=== PATIENT | female | born 1935 | race African-American/Black ===

== ENCOUNTER 2017-08-05 14:26 | Outpatient (CLI) | payer MEDICARE, MEDICAID ==
[2017-08-05 15:30] LABS: Bilirubin Negative (Negative); Blood, Urine Trace (Negative); Clarity Slightly Cloudy (Clear); Glucose, Urine (Dipstick) Negative (Negative); Leukocyte Large (Negative); Nitrite Negative (Negative); Protein, Urine (Dipstick) Negative (Neg-Trace); Urobilinogen 0.2 mg/dL (0.2-1.0); pH, Urine 5.5 (5.0-9.0)
[2017-08-05 15:31] LABS: Specific Gravity, Urine 1.008 (1.002-1.036)
[2017-08-05 15:34] LABS: Bacteria/HPF 1+ HPF (None Seen); RBC/HPF 0-3 HPF (0-3); Squamous Epithelial 0-3 HPF (0-3)
== END 2017-08-05 14:27 | disposition home or self-care (01) ==
LOC: NAVSJIPCSP 14:26
PROVIDERS: ATTEND Internal Medicine
DX: R30.0 Dysuria (principal)
CPT/HCPCS: 81003; 81015; 87077; 87086; 87186

== ENCOUNTER 2017-12-07 17:02 | Outpatient (CLI) | payer MEDICARE, MEDICAID ==
[2017-12-07 17:25] LABS: #Basophils 0.1 thou/uL (0.0-0.2); #Eosinphils 0.6 thou/uL (0.0-0.7); #Monocytes 0.7 thou/uL (0.11-0.59); #Neutrophils 4.6 thou/uL (1.40-6.50); %Basophils 1.2 % (0.0-1.0); %Eosinophils 6.9 % (0.0-10.0); %Lymphocytes 33.6 % (21.0-51.0); %Monocytes 7.4 % (0.0-10.0); %Neutrophils 50.9 % (42.0-75.0); Hemoglobin 14.4 g/dL (12.0-16.0); Mean Corpuscular HGB CONC 30.7 g/dL (32.0-36.0); Mean Corpuscular Hemoglobin 28.8 pg (27.0-31.0); Mean Corpuscular Volume 93.8 fl (81.0-99.0); Mean Platelet Volume 8.4 fL (7.4-10.4); Platelet Count 238 thou/uL (130-400); RBC Distribution Width 13.1 % (11.5-14.5); Red Blood Cell (RBC) Count 5.01 mill/uL (4.20-5.40)
--- NOTE | 2017-12-07 17:59 | RAD ---
CHEST TWO VIEWS: 12/07/17 HISTORY: Recurrent aspiration. COMPARISON: 02/23/17. FINDINGS: Atherosclerosis of the aorta. Normal cardiac silhouette. Lungs and pleural spaces are clear. No conso lidation or mass. Hyperinflation is noted. No pneumothorax. Cervical fusion hardware, right humeral p rosthesis and distal thoracic spine fusion hardware is noted. Stable calcified granuloma in the left lung base. IMPRESSION: 1. No acute cardiopulmonary process. 2. Atherosclerosis. POS: PPP
== END 2017-12-07 17:03 | disposition home or self-care (01) ==
LOC: NAV RAD 17:02
PROVIDERS: ATTEND Internal Medicine
DX: J69.0 Pneumonitis due to inhalation of food and vomit (principal); I70.90 Unspecified atherosclerosis
CPT/HCPCS: 71046; 85025

== ENCOUNTER 2018-06-17 11:28 | Emergency (ER) | payer MEDICARE, OTHER ==
[2018-06-17] MEDS ORDERED: hydrALAZINE 20 MG/ML VIAL ONE (12:17)
[2018-06-17 12:54] LABS: Anion Gap 13 mmol/L (10-20); BUN (Urea Nitrogen) 12 mg/dL (9.8-20.1); Calc. Creatinine Clearance 0 mL/min (70-130); Calcium 9.8 mg/dL (7.8-10.44); Carbon Dioxide 25 mmol/L (23-31); Chloride 104 mmol/L (98-107); Estimated GFR-MDRD 67; Glucose 103 mg/dL (83-110); Potassium 3.7 mmol/L (3.5-5.1); Sodium 138 mmol/L (136-145)
[2018-06-17] MEDS ORDERED: Albuterol Sulfate 2.5 mg/3 ml Neb ONE (13:28)
[2018-06-17] MEDS ORDERED: traMADol HCl 50 MG TAB ONE (13:28)
[2018-06-17] MEDS ORDERED: predniSONE 20 MG TAB ONE (14:06)
--- NOTE | 2018-06-17 14:15 | RAD ---
LEFT RIBS WITH PA CHEST: Date: 06/17/18 HISTORY: Fall. COMPARISON: None. FINDINGS: Heart size is enlarged. There is a left basilar calcified granuloma. No acute displaced left-sided rib fracture. IMPRESSION: Chronic findings. No acute abnormality. POS: CLAYH
--- NOTE | 2018-06-17 14:19 | RAD ---
LEFT SHOULDER 3 VIEWS: Date: 06/17/18 HISTORY: Fall. COMPARISON: None. FINDINGS: No acute displaced fracture or malalignment. Visualized ribs are unremarkable. Moderate degenerative changes of the left humeral head/neck junction. There is calcified tendinosis of the rotator cuff and much less likely an avulsion fracture. Large vu bacromial osteophyte. IMPRESSION: Likely calcific tendinosis left rotator cuff, less likely an avulsion fracture from the footprint. MR I may be beneficial if clinically warranted. POS: ELY
--- NOTE | 2018-06-17 14:20 | RAD ---
LEFT HIP 2 VIEWS: Date: 06/17/18 HISTORY: Fall. COMPARISON: None. FINDINGS: No definite acute fracture is appreciated. There are advanced enthesopathic changes throughout the gl uteus medius and minimus tendon insertions. Multiple calcifications of the left gluteus musculature. Hypertrophic degenerative changes of the pubic symphysis. SI fusion hardware, as well as lumbosacral spine hardware is appreciated. IMPRESSION: No acute fracture of the left hip. POS: CLAY
--- NOTE | 2018-06-17 14:37 | CT ---
CT HEAD NONCONTRAST DATE: 06/17/18 HISTORY: Fall. Head injury. FINDINGS: There is no evidence of acute intracranial hemorrhage or infarct. 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 No mass effect or shift of midline structures. Prominent cavum septum pellucidum. Sm all polyp in the posterior aspect of left maxillary sinus. IMPRESSION: No acute intracranial abnormalities are demonstrated. POS: CLAY
--- NOTE | 2018-06-17 14:41 | CT ---
CT CERVICAL SPINE WITHOUT CONTRAST: Date: 06/17/18 HISTORY: Fall. Trauma. Pain. COMPARISON: None. FINDINGS: The odontoid process is intact. The occipital condyles are intact. There are erosive degenerative chapito nges of the odonto-atlanto interval. There is ACDF hardware at C4-5, as well as C7-T1. There is osseous fusion of the C6 and C7 vertebral bodies. There is posterior hypertrophic osteophyte formation at C3-C4, narrowing the spinal canal. There are erosive changes at the C7-T1 diskectomy spacer, which may reflect micromotion at this level . There is no acute fracture or malalignment of the cervical spine. The temporomandibular joint alignme nt is normal bilaterally. Paraspinal soft tissues are unremarkable. There is asymmetric enlargement o f the left lobe of the thyroid gland. IMPRESSION: 1. No acute fracture or malalignment of the cervical spine. 2. Asymmetric enlargement of left thyroid gland, for which nonemergent ultrasound could be obtained if clinically warranted. POS: ELY
== END 2018-06-17 14:15 | disposition home or self-care (01) ==
LOC: NAV ERS 11:28
DX: S70.02XA Contusion of left hip, initial encounter (principal); J44.9 Chronic obstructive pulmonary disease, unspecified; M54.2 Cervicalgia; I48.91 Unspecified atrial fibrillation; I11.0 Hypertensive heart disease with heart failure; I50.9 Heart failure, unspecified; K21.9 Gastro-esophageal reflux disease without esophagitis; E78.5 Hyperlipidemia, unspecified; F41.9 Anxiety disorder, unspecified; F32.9 Major depressive disorder, single episode, unspecified; Z86.73 Personal history of transient ischemic attack (TIA), and cerebral infarction without residual deficits; Z79.891 Long term (current) use of opiate analgesic; Z79.899 Other long term (current) drug therapy; W01.190A Fall on same level from slipping, tripping and stumbling with subsequent striking against furniture, initial encounter
CPT/HCPCS: 70450; 72125; 80048; J0360; J7506; J7611; J7620

== ENCOUNTER 2018-11-21 19:36 | Outpatient (CLI) | payer MEDICARE, OTHER ==
--- NOTE | 2018-11-21 20:03 | RAD ---
EXAM: Chest 2 views: HISTORY: Cough and congestion for 2 weeks COMPARISON: 12/07/2017 FINDINGS: Postoperative changes involving the cervical spine, lower thoracic and lumbar spine, and right should er. Heart size is within normal limits. Old granulomatous disease. Minimal thickening in the region of the right minor fissure possibly a small amount of fluid. The lungs demonstrate no significant acute process. Atherosclerotic changes of the aorta. No confluent pneumonia, overt edema, pleural effusion, pneumothorax, or other significant acute proce ss. IMPRESSION: Overall probably stable chronic lung changes given less inspiration on today's study. Atherosclerosis of the aorta. No significant new process.
== END 2018-11-21 19:37 | disposition home or self-care (01) ==
LOC: NAV RAD 19:36
PROVIDERS: ATTEND Internal Medicine
DX: R05 Cough (principal); I70.0 Atherosclerosis of aorta
CPT/HCPCS: 71046

== ENCOUNTER 2019-02-21 17:15 | Outpatient (CLI) | payer MEDICARE, OTHER ==
--- NOTE | 2019-02-21 17:48 | ULT ---
EXAM: Carotid Doppler PROVIDED CLINICAL HISTORY: CVA COMPARISON: None FINDINGS: Grayscale and color Doppler sonography with spectral analysis was performed of the extracranial carot id system bilaterally. There is no evidence for a hemodynamically significant internal carotid artery stenosis by peak systolic velocity or ratio criteria. Antegrade flow is seen in the vertebral arteries. IMPRESSION: No sonographic evidence for a hemodynamically significant internal carotid artery stenosis.
--- NOTE | 2019-02-21 18:06 | CT ---
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 Postoperative c hanges of ACDF are again noted at C4-5 and C6-7, without evidence for hardware loosening or migration. Fusion across the C5-6 interspace may be congenital or postoperative and is also stable. P rominent disc space narrowing and endplate degenerative change again noted at C3-4 and C7-T1. Multilevel facet arthritis changes most conspicuous at C3-4, C6-7 and C7-T1. Evaluation for central c anal stenosis is limited by CT though central canal narrowing at C3-4 appears grossly stable and is likely at least moderate in degree. There is severe right foraminal narrowing and mild to moderate le ft foraminal narrowing at C3-4. There is severe foraminal narrowing on the left at C6-7 and severe bilateral foraminal narrowing at C7-T1. IMPRESSION: Postoperative and degenerative changes involving the cervical spine as described above, appearing sim ilar to prior study.
== END 2019-02-21 17:16 | disposition home or self-care (01) ==
LOC: NAV ULT 17:15
PROVIDERS: ATTEND Internal Medicine
DX: M50.20 Other cervical disc displacement, unspecified cervical region (principal); I63.512 Cerebral infarction due to unspecified occlusion or stenosis of left middle cerebral artery; M47.812 Spondylosis without myelopathy or radiculopathy, cervical region; Z98.890 Other specified postprocedural states
CPT/HCPCS: 72125; 93880

== ENCOUNTER 2020-02-02 15:54 | Emergency (ER) | payer MEDICARE, OTHER ==
[2020-02-02] MEDS ORDERED: Fluorescein Opthalmic Strip ONE (16:26)
[2020-02-02] MEDS ORDERED: Naproxen 500 MG TAB ONE (17:05)
== END 2020-02-02 17:20 | disposition home or self-care (01) ==
LOC: NAV ERS 15:54
DX: T15.91XA Foreign body on external eye, part unspecified, right eye, initial encounter (principal); I11.0 Hypertensive heart disease with heart failure; I50.9 Heart failure, unspecified; I48.91 Unspecified atrial fibrillation; I25.2 Old myocardial infarction; I25.10 Atherosclerotic heart disease of native coronary artery without angina pectoris; K21.9 Gastro-esophageal reflux disease without esophagitis; E78.5 Hyperlipidemia, unspecified; E78.00 Pure hypercholesterolemia, unspecified; Z86.73 Personal history of transient ischemic attack (TIA), and cerebral infarction without residual deficits; F03.90 Unspecified dementia, unspecified severity, without behavioral disturbance, psychotic disturbance, mood disturbance, and anxiety; J44.9 Chronic obstructive pulmonary disease, unspecified; F41.9 Anxiety disorder, unspecified; F32.9 Major depressive disorder, single episode, unspecified; Z79.51 Long term (current) use of inhaled steroids; Z79.899 Other long term (current) drug therapy
CPT/HCPCS: 99283

== ENCOUNTER 2020-03-14 14:52 | Outpatient (CLI) | payer MEDICARE, OTHER ==
--- NOTE | 2020-03-14 15:31 | RAD ---
EXAM: Chest 2 views: HISTORY: Wheezing COMPARISON: 11/21/2018 FINDINGS: There is an enlarged but stable cardiomediastinal silhouette. Atherosclerotic calcifications are see n in the aorta. There is no evidence of consolidation, mass, or pleural effusion. Degenerative changes are seen in the spine. Post surgical changes are seen in the spine and right shoulder. IMPRESSION: No evidence of acute cardiopulmonary disease
--- NOTE | 2020-03-14 15:54 | RAD ---
LEFT KNEE: 03/14/20 Total of five views. INDICATIONS: Fall with knee pain. Moderate degenerative changes. Loss of medial joint space. Prominent marginal osteophytes medially. C hondrocalcinosis. Prominent degenerative changes at the patellofemoral joint. No effusion. No acute f racture identified. IMPRESSION: Moderate degenerative changes at the left knee primarily involving the medial joint space and the pat ellofemoral space. POS: AGW
--- NOTE | 2020-03-14 16:10 | RAD ---
LUMBAR SPINE SERIES THREE VIEWS: 03/14/20 HISTORY: Fall with back pain. Extensive postop changes are noted. Bilateral pedicle screw placement at L5-S1. I-bar placement acros s the left SI joint is noted. Bony fusion changes are seen from the L3 to the L5 levels. Markers of a disc implant are in the L3-4 level. The L4-5 and L5-S1 disc levels are severely narrowed. Postoperat tyler changes are also seen in the thoracolumbar spine region. Disc implant at the T12-L1 level. Bilate ral pedicle screws at this level. Also pedicle screws are seen at T11 and T10 levels on the lateral v iew. Vascular calcifications are noted. IMPRESSION: Extensive postop changes of the spine. No acute injury. POS: OFF
[2020-03-14 16:14] LABS: #Basophils 0.2 thou/uL (0.0-0.2); #Eosinphils 0.4 thou/uL (0.0-0.7); #Lymphocytes 3.5 thou/uL (1.20-3.40); #Monocytes 1.5 thou/uL (0.11-0.59); #Neutrophils 8.3 thou/uL (1.40-6.50); %Basophils 1.7 % (0.0-1.0); %Eosinophils 2.7 % (0.0-10.0); %Lymphocytes 25.3 % (21.0-51.0); %Monocytes 10.5 % (0.0-10.0); %Neutrophils 59.9 % (42.0-75.0); Hemoglobin 12.8 g/dL (12.0-16.0); Mean Corpuscular HGB CONC 30.1 g/dL (32.0-36.0); Mean Corpuscular Hemoglobin 29.5 pg (27.0-31.0); Mean Corpuscular Volume 98.2 fL (78.0-98.0); Mean Platelet Volume 8.5 fL (7.4-10.4); Platelet Count 205 thou/uL (130-400); RBC Distribution Width 13.7 % (11.5-14.5); Red Blood Cell (RBC) Count 4.32 mill/uL (4.20-5.40); White Blood Cell (WBC) Count 13.9 thou/uL (4.8-10.8)
[2020-03-14 16:23] LABS: ALT (SGPT) 11 U/L (8-55); AST (SGOT) 18 U/L (5-34); Albumin 3.9 g/dL (3.4-4.8); Alkaline Phosphatase 144 U/L (40-110); Anion Gap 17 mmol/L (10-20); BUN (Urea Nitrogen) 16 mg/dL (9.8-20.1); Bilirubin, Total 0.5 mg/dL (0.2-1.2); CK (CPK) 140 U/L (29-168); Calc. Creatinine Clearance 0 mL/min (70-130); Calcium 9.7 mg/dL (7.8-10.44); Carbon Dioxide 23 mmol/L (23-31); Chloride 105 mmol/L (98-107); Estimated GFR-MDRD 45; Globulin 3.3 g/dL (2.4-3.5); Glucose 97 mg/dL (83-110); Potassium 3.9 mmol/L (3.5-5.1); Protein, Total 7.2 g/dL (6.0-8.3); Sodium 141 mmol/L (136-145)
[2020-03-14 16:30] LABS: Troponin I 0.038 ng/mL (< 0.028)
[2020-03-14 17:19] LABS: Bilirubin Negative (Negative); Blood, Urine Negative (Negative); Clarity Clear (Clear); Glucose, Urine (Dipstick) Negative (Negative); Ketone, Urine Negative (Negative); Leukocyte Small (Negative); Nitrite Negative (Negative); Protein, Urine (Dipstick) Negative (Neg-Trace); Urobilinogen 0.2 mg/dL (Less than 2); pH, Urine 5.5 (5.0-9.0)
[2020-03-14 17:26] LABS: Bacteria/HPF 3+ HPF (None Seen); RBC/HPF 0-3 HPF (0-3); Squamous Epithelial 0-3 HPF (0-3)
== END 2020-03-14 14:53 | disposition home or self-care (01) ==
LOC: NAV RAD 14:52
PROVIDERS: ATTEND Nurse Practitioner Adult Health
DX: J44.1 Chronic obstructive pulmonary disease with (acute) exacerbation (principal); R06.2 Wheezing; R07.89 Other chest pain; M54.5 Low back pain; R15.9 Full incontinence of feces; S80.02XA Contusion of left knee, initial encounter; M25.562 Pain in left knee; R30.0 Dysuria; M17.12 Unilateral primary osteoarthritis, left knee; Z98.890 Other specified postprocedural states; W18.30XA Fall on same level, unspecified, initial encounter
CPT/HCPCS: 36415; 71046; 72100; 80053; 81001; 82550; 82553; 84484; 85025; 87077; 87086; 87186